=== PATIENT | female | born 1980 | race Caucasian/White ===

== ENCOUNTER → 2023-03-14 07:44 | Outpatient (CLI) | payer OTHER, SELFPAY ==
--- NOTE | 2023-03-14 | DI.US.S_ITS ---
PROCEDURE: US PELVIC COMPLETE INDICATIONS: PELVIC DISCOMFORT X 1 YEAR. IRREGULAR MENSES. TECHNIQUE: Real-time scanning was performed of the pelvic organs, with image documentation. Additional endovaginal scanning was necessary due to incomplete visualization of the adnexal and endometrial structures by transabdominal scanning. COMPARISON: None. FINDINGS: Uterus: Uterus is anteverted and normal in size at 7.4 x 5.0 x 3.5 cm. The myometrium is homogeneous. The endometrium measures 7 mm combined thickness. Echogenic focus within the endometrium with a vascular stalk measuring 0.6 x 0.7 x 0.2 cm. Nabothian cysts in the cervix. Ovaries: The right ovary measures 2.8 x 2.4 x 1.6 cm, with a calculated ovarian volume of 6 cc. The left ovary measures 3.4 x 2.3 x 2.0 cm, with a calculated ovarian volume of 8 cc. The ovaries have a normal sonographic appearance. Greater than 12 follicles can be seen in each ovary. No adnexal masses are seen. Other: No pathologic free abdominal or pelvic fluid. IMPRESSION: Greater than 12 follicles per ovary, which can be seen in the clinical setting of PCOS. Echogenic focus within the endometrium with a vascular stalk measuring 0.6 x 0.7 x 0.2 cm, presumably a polyp. We strive to produce accurate, complete, and clear reports of imaging services. To assist us in improving patient care, this report was composed using standard report templates and voice recognition software. Therefore, it may contain abnormal punctuation, insertions and/or omissions. Occasional wrong-word or sound-alike substitutions may occur. Though we review the report and make efforts to correct it, we do recommend that the report be read carefully in proper context to recognize any text inaccuracies. Dictated by: Russ Newman M.D. on 03/14/2023 at 14:15 Approved by: Russ Newman M.D. on 03/14/2023 at 14:17
== END ==
PROVIDERS: PCP Registered Nurse; Referring Provider Registered Nurse; Visit Provider Registered Nurse
DX: R10.2 Pelvic and perineal pain (principal); N92.6 Irregular menstruation, unspecified; R93.89 Abnormal findings on diagnostic imaging of other specified body structures
CPT/HCPCS: 76830; 76856

== ENCOUNTER 2023-05-15 12:00 | Day surgery (SDC) | payer OTHER, SELFPAY ==
[2023-05-10 13:52] VITALS: BMI 24.5
[2023-05-15] VITALS (7 sets, daily range): BP systolic 104–124; BP diastolic 58–82; PULSE 69–98; RESP 12–24; TEMP 36.2–36.6; O2SAT 99–100; BMI 24.5
--- NOTE | 2023-05-15 | PATH_ITS ---
[facility] Accession Number: [id number] No. of containers..01 Tissue . 01 Material submitted: . endometrium - UTERINE CONTENTS- EMB . 01 Diagnosis: Uterine Contents-Endometrial Biopsy: Portions of weakly proliferative endometrium with patchy regions of stromal breakdown and shedding; negative for glandular hyperplasia, cytologic atypia, or malignancy. Some endometrial fragments demonstrate prominent vessels, suggestive of polyp, if clinical and imaging studies are concordant. Portions of myometrium; negative for significant atypia. MRV 05/25/2023 1843 Local . 01 Electronically signed: . Carol Murray MD, Pathologist NPI- [id number] . 01 Gross description: . UTERINE CONTENTS- EMB: Received in formalin are minute fragments of mucoid and hemorrhagic material measuring 2.0 x 2.0 x 0.2 cm in aggregate. Submitted in toto in 1 cassette. /TORSTEN 05/17/2023 1908 Local . 01 Pathologist provided ICD-10: N84.0 . 01 CPT . 350842 Specimen Comment: A courtesy copy of this report has been sent to [facility] Pathology Performed at: 01 [facility] [address] [place] [address], [place], [place] [id number] MD Seb Armendariz MD Phone: [phone]
[2023-05-15] MEDS: LACTATED RINGERS 1,000 ML 100 ML IV (12:55)
--- NOTE | 2023-05-15 13:05 | PM.PREOP ---
Pre-operative Note Interval Note History & Physical reviewed/Exam performed by Physician: Yes Changes to H&P: No H&P completed within 30 days and has changed as indicated here:: No changes to H&P performed on 05/10/23.
--- NOTE | 2023-05-15 14:03 | SUR.OPER ---
Lithotomy on padded OR bed, head on pillow, arms secured on padded arm boards at <90 degrees abduction. Legs secured in padded yellow fins stirrups.
--- NOTE | 2023-05-15 14:28 | PM.OP.1 ---
Operative Date/Time/Diagnoses Date of procedure: 05/15/23 Time of procedure: 14:28 Pre-op diagnosis: Abnormal uterine bleeding Post-op diagnosis: same Procedure & Clinicians Procedure: Diagnostic hysteroscopy Hysteroscopic polypectomy and endometrial sampling Same procedure as scheduled: Yes Indications: 42-year-old G0 LMP 03/07/23 presents today for endometrial polyp seen on ultrasound. She states that over the last 6 months, her periods have become closer together with increased cramping. She states that she has had intermittent cramping throughout her cycle now, even when not menstruating. Previously she had regular monthly cycles lasting 4-5 days. Currently she is still having 4-5 days of bleeding, using a diva cup and changing it twice a day on her 1st two heavy days. Surgeon: Theresa Duke Click Yes if Unassisted: Yes Anesthesia Type: General Operative Notes Findings: Normal appearing endometrial cavity with thickening of endometrial tissue on the posterior wall. Bilateral tubal ostia visualized. Thin endometrial lining. Specimen(s): other (uterine contents) Estimated Blood Loss (mL): 5 Blood products transfused: none Procedure in detail: The risks, benefits, indications and alternatives of the procedure were reviewed with the patient and informed consent was obtained. The pt was taken to the operating room where general anesthesia was obtained without difficulty. The pt was then placed in the low lithotomy position using gel-padded Antoni stirrups. Sequential compression devices were placed bilaterally for VTE prophylaxis. The pt was then prepped and draped in the sterile fashion. A sterile speculum was placed in the patient?s vagina and the cervix was visualized. A single tooth tenaculum was used to grasp the anterior lip of the cervix. The cervix was then gently, dilated to a size 8 Hegar dilator. The Myosure operative hysteroscope was first primed and pressure set. The operative hysteroscope was then advanced through the endocervical canal under direct visualization. The uterus was distended with warm saline, and notable for the above findings. The Myosure Reach was then inserted into the operative hysteroscope. The posterior wall thickening was excised, and global endometrial sampling was then performed. The operative hysteroscope was then removed under direct visualization. Tissue obtained was sent to pathology for review. The single tooth tenaculum was removed from the anterior lip of the cervix. The tenaculum site was noted to be hemostatic after direct pressure and silver nitrate was applied. All instruments were then removed from the patient?s vagina. Hysteroscopic fluid deficit was 630cc of normal saline. The patient tolerated the procedure well. At the completion of the case the sponge and needle counts were correct x 2. The patient was taken to the PACU in stable condition. Complications: none Post-operative Condition: stable Disposition: PACU Plan for aftercare: Discharge to home once patient is meeting all discharge criteria.
[2023-05-15] MEDS: BENZOCAINE/MENTHOL 1 LOZ PKT 1 EACH PO (14:42)
== END 2023-05-15 15:05 | disposition home or self-care (01) ==
PROVIDERS: PCP Registered Nurse; Referring Provider Student in an Organized Health Care Education/Training Program; Visit Provider Student in an Organized Health Care Education/Training Program
PROC: 0UDB8ZZ Extraction of Endometrium, Via Natural or Artificial Opening Endoscopic (ICD-10-PCS; CPT 58558; principal; 2023-05-15 13:30)
DX: N84.0 Polyp of corpus uteri (principal); N93.8 Other specified abnormal uterine and vaginal bleeding
CPT/HCPCS: 58558; J1100; J1885; J2250; J2405; J2704; J3010; J3490

== ENCOUNTER → 2024-03-29 10:26 | Outpatient (CLI) | payer OTHER, SELFPAY ==
--- NOTE | 2024-03-29 | DI.RAD.S_ITS ---
PROCEDURE: XR LUMBAR SPINE 2-3V INDICATIONS: lumbar radiculopathy TECHNIQUE: 3 views of the lumbar spine were acquired. COMPARISON: None. FINDINGS: 5 non rib-bearing lumbar vertebrae are present. The vertebral body heights are preserved. The intervertebral disc heights are preserved. No significant foraminal narrowing. Mild facet arthropathy at the L5-S1 level. The visualized sacroiliac joints and sacral arcs are within normal limits. Visualized chest and abdomen within normal limits. IMPRESSION: No acute radiographic abnormality of the lumbar spine. Dictated by: Saqib Jarrett M.D. on 03/29/2024 at 11:33 Approved by: Saqib Jarrett M.D. on 03/29/2024 at 11:34
== END ==
PROVIDERS: PCP Registered Nurse; Referring Provider Registered Nurse; Visit Provider Registered Nurse
DX: M54.16 Radiculopathy, lumbar region (principal)
CPT/HCPCS: 72100